=== PATIENT | female | born 1945 | race Caucasian/White ===

== ENCOUNTER 2023-03-25 12:16 | Emergency (ER) | payer MEDICARE ==
[~2023-03-25] VITALS: Ht 160 cm; Wt 70.3 kg
[~2023-03-25 12:16] MED LIST: AMBIEN10 MG PO; ATARAX25 MG PO; LISINOPRIL10 MG PO; MEDROL DOSEPAK4 MG PO; NEXIUM40 MG PO; TAGAMET300 MG PO; TENORETIC 50 501 TAB PO; TENORMIN50 MG PO; VICODIN 5/500 505 MG PO; Z-PAC; ZITHROMAX Z-PA250 MG PO
[2023-03-25 12:45] VITALS: BP 170/69
[2023-03-25] MEDS ORDERED: PREDNISONE20 M1 PO (12:53)
[2023-03-25] MEDS ORDERED: VALU-DRYL ALLER25 MG PO (12:53)
== END 2023-03-25 13:03 | disposition home or self-care (01) ==
LOC: ED 12:16
DX: T63.441A Toxic effect of venom of bees, accidental (unintentional), initial encounter (principal); L53.0 Toxic erythema; Z88.0 Allergy status to penicillin; Z88.1 Allergy status to other antibiotic agents; Z88.5 Allergy status to narcotic agent; Z79.899 Other long term (current) drug therapy; Z90.49 Acquired absence of other specified parts of digestive tract; Y92.89 Other specified places as the place of occurrence of the external cause

== ENCOUNTER 2024-06-26 07:35 | Inpatient (IN) | payer MEDICARE ==
[~2024-06-26] VITALS: Ht 160 cm; Wt 70.8 kg
[~2024-06-26 07:35] MED LIST changes: +PREDNISONE20 M1 PO; +VALU-DRYL ALLER25 MG PO
[2024-06-26 07:48] VITALS: BP 151/87
[2024-06-26 08:07] LABS: BASO % 0.1 % (0.0-1.0); EOS # 0.1 10*3/uL (0.0-0.4); EOS % 0.7 % (1.0-4.0); HEMATOCRIT 37.9 % (37.0-47.0); LYMPH # 1.8 10*3/uL (1.3-4.4); LYMPH % 12.2 % (27.0-41.0); MEAN CELL VOLUME 89.4 fl (81.0-99.0); MEAN CORPUSCULAR HGB 29.2 pg (27.0-31.0); MEAN CORPUSCULAR HGB CONC 32.7 g/dl (33.0-37.0); MEAN PLATELET VOLUME 10.5 fl (9.6-12.3); MONO # 0.6 10*3/uL (0.1-1.0); MONO % 3.8 % (3.0-9.0); NEUT # 12.4 10*3/uL (2.3-7.9); NEUT % 82.9 % (47.0-73.0); PLATELET COUNT AUTOMATED 245 10*3/uL (130-400); RED BLOOD COUNT 4.24 10*6/uL (4.10-5.10); RED CELL DISTRI WIDTH 13.9 % (0-14.5); WHITE BLOOD COUNT 14.9 10*3/uL (4.8-10.8)
[2024-06-26] MEDS ORDERED: LOSARTAN POTAS100 M1 PO (08:13)
[2024-06-26] MEDS ORDERED: OMEPRAZOLE MAGN20 MG PO (08:13)
[2024-06-26] MEDS ORDERED: AMLODIPINE BESYL5 MG PO (08:13)
[2024-06-26] MEDS ORDERED: VITAMIN D3125 MC1 PO (08:14)
[2024-06-26] MEDS ORDERED: VITAMIN B COMP1 EAC1 PO (08:14)
[2024-06-26] MEDS ORDERED: CITALOPRAM40 MG PO (08:14)
[2024-06-26] MEDS ORDERED: ALLEGRA ALLERG180 M2 PO (08:15)
[2024-06-26] MEDS ORDERED: METOPROLOL SUC100 M1 PO (08:15)
[2024-06-26] MEDS ORDERED: HYDROCHLOROTH12.5 M2 PO (08:15)
[2024-06-26] MEDS ORDERED: Ondansetron Hydrochloride 4 MG/2 ML VIAL IV ONE ×2 (08:15→09:40)
[2024-06-26] MEDS ORDERED: LEVOTHYROXINE25 MCG PO (08:15)
[2024-06-26] MEDS ORDERED: Ketorolac Tromethamine 15 MG/ML VIAL IV ONE ×2 (08:15→13:25)
[2024-06-26] MEDS ORDERED: Meclizine25 MG PO (08:16)
[2024-06-26] MEDS ORDERED: ADV 100/50 INH (08:16)
[2024-06-26] MEDS ORDERED: 24 HOUR ALLER15.8 ML INH (08:17)
[2024-06-26 08:18] LABS: ACT PARTIAL THROMBO TIME 25.6 SECONDS (20.0-32.1)
[2024-06-26 08:26] LABS: ALKALINE PHOSPHATASE 75 U/L (46-116); BUN 15 mg/dl (9-23); CHLORIDE 101 mmol/L (98-107); POTASSIUM 3.3 mmol/L (3.4-5.1); SGPT/ALT 15 U/L (5-49); TOTAL PROTEIN 6.7 gm/dL (6.0-8.0)
[2024-06-26] MEDS ORDERED: POTASSIUM CHLORIDE 20 MEQ TAB PO ONE (08:45)
[2024-06-26] MEDS ORDERED: SODIUM CHLORIDE 0.9% 1,000 ML IV ONE ×3 (08:55→09:00)
[2024-06-26] MEDS ORDERED: Doxycycline Hyclate 100 MG in SODIUM CHLORIDE 0.9% 250 ML IV ONE ×3 (09:30→22:00)
[2024-06-26] MEDS ORDERED: fentaNYL CITRATE/PF 50 MCG/ML SYRINGE IV ONE (09:35)
[2024-06-26 10:28] VITALS: BP 128/63
[2024-06-26] MEDS ORDERED: BISACODYL 10 MG SUPP R PRN (13:20)
[2024-06-26] MEDS ORDERED: Magnesium Hydroxide 30 ML UDC PO PRN (13:20)
[2024-06-26] MEDS ORDERED: BISACODYL 5 MG TAB PO PRN (13:20)
[2024-06-26] MEDS ORDERED: ACETAMINOPHEN 650 MG SUPP R PRN (13:20)
[2024-06-26] MEDS ORDERED: ACETAMINOPHEN 325 MG TAB PO PRN (13:20)
[2024-06-26 15:30] VITALS: BP 131/59
[2024-06-26 16:00] VITALS: BP 128/63
[2024-06-26] MEDS ORDERED: fentaNYL CITRATE 100 MCG/2 ML VIAL IV PRN (17:05)
[2024-06-26] MEDS ORDERED: Ketorolac Tromethamine 15 MG/ML VIAL IV PRN (17:05)
[2024-06-26 20:00] VITALS: BP 100/40
[2024-06-27] VITALS: BP 100/50
[2024-06-27 06:36] LABS: BASO % 0.2 % (0.0-1.0); EOS % 0.2 % (1.0-4.0); LYMPH # 2.6 10*3/uL (1.3-4.4); LYMPH % 19.7 % (27.0-41.0); MEAN CELL VOLUME 92.1 fl (81.0-99.0); MEAN CORPUSCULAR HGB CONC 31.5 g/dl (33.0-37.0); MEAN PLATELET VOLUME 11.6 fl (9.6-12.3); MONO # 0.7 10*3/uL (0.1-1.0); MONO % 4.9 % (3.0-9.0); NEUT # 9.8 10*3/uL (2.3-7.9); NEUT % 74.5 % (47.0-73.0); PLATELET COUNT AUTOMATED 214 10*3/uL (130-400); RED BLOOD COUNT 3.69 10*6/uL (4.10-5.10); RED CELL DISTRI WIDTH 14.3 % (0-14.5); WHITE BLOOD COUNT 13.2 10*3/uL (4.8-10.8)
[2024-06-27 07:09] LABS: BUN 10 mg/dl (9-23); CHLORIDE 105 mmol/L (98-107); POTASSIUM 3.6 mmol/L (3.4-5.1)
[2024-06-27 08:00] VITALS: BP 129/98
[2024-06-27] MEDS ORDERED: Meclizine Hydrochloride 25 MG TAB PO PRN (09:45)
[2024-06-27] MEDS ORDERED: Albuterol Sulf/Ipratropium 3 ML VIAL NEB SCH (09:45)
[2024-06-27] MEDS ORDERED: Enoxaparin Sodium 40 MG/0.4 ML SYR SC SCH (10:00)
[2024-06-27] MEDS ORDERED: Cholecalciferol 5,000 IU CAP (125 MCG) PO SCH (10:00)
[2024-06-27] MEDS ORDERED: AZITHROMYCIN 250 ML IV SCH (10:00)
[2024-06-27] MEDS ORDERED: HYDROCHLOROTHIAZIDE 12.5 MG CAP PO SCH (10:00)
[2024-06-27] MEDS ORDERED: amLODIPine besylate 5 MG TAB PO SCH (10:00)
[2024-06-27] MEDS ORDERED: Losartan Potassium 50 MG TAB PO SCH (10:00)
[2024-06-27] MEDS ORDERED: OMEPRAZOLE 20 MG CAP PO SCH (10:00)
[2024-06-27] MEDS ORDERED: Vitamin B Complex and Vitami4 1 TAB TAB PO SCH (10:00)
[2024-06-27] MEDS ORDERED: LORATADINE 10 MG TAB PO SCH (10:00)
[2024-06-27] MEDS ORDERED: Levothyroxine Sodium 25 MCG TAB PO SCH (10:00)
[2024-06-27] MEDS ORDERED: CITALOPRAM 20 MG TAB PO SCH (10:00)
[2024-06-27] MEDS ORDERED: METOPROLOL SUCCINATE XR 100 MG TAB PO SCH (10:00)
[2024-06-27] MEDS ORDERED: Doxycycline Hyclate 100 MG in SODIUM CHLORIDE 0.9% 250 ML IV SCH (10:00)
[2024-06-27 10:40] VITALS: BP 108/62
[2024-06-27 12:00] VITALS: BP 113/65
[2024-06-27 16:00] VITALS: BP 143/46
[2024-06-27 20:00] VITALS: BP 148/46
[2024-06-28] VITALS: BP 123/55
[2024-06-28 06:40] LABS: BASO % 0.4 % (0.0-1.0); EOS # 0.1 10*3/uL (0.0-0.4); EOS % 1.5 % (1.0-4.0); HEMATOCRIT 33.1 % (37.0-47.0); LYMPH # 1.8 10*3/uL (1.3-4.4); LYMPH % 26.2 % (27.0-41.0); MEAN CELL VOLUME 89.5 fl (81.0-99.0); MEAN CORPUSCULAR HGB 28.9 pg (27.0-31.0); MEAN CORPUSCULAR HGB CONC 32.3 g/dl (33.0-37.0); MEAN PLATELET VOLUME 10.9 fl (9.6-12.3); MONO # 0.6 10*3/uL (0.1-1.0); MONO % 8.1 % (3.0-9.0); NEUT # 4.2 10*3/uL (2.3-7.9); NEUT % 62.8 % (47.0-73.0); PLATELET COUNT AUTOMATED 208 10*3/uL (130-400); RED CELL DISTRI WIDTH 13.9 % (0-14.5); WHITE BLOOD COUNT 6.8 10*3/uL (4.8-10.8)
[2024-06-28 08:00] VITALS: BP 152/85
[2024-06-28 12:00] VITALS: BP 154/74
[2024-06-28] MEDS ORDERED: VIBRA-TAB100 MG PO (12:11)
== END 2024-06-28 14:06 | disposition home or self-care (01) | DRG 871 ==
LOC: ED 07:35 → EDHOLD 09:08 → 4E 14:05
PROVIDERS: Emergency Medicine; Internal Medicine; Student in an Organized Health Care Education/Training Program; ADMIT Internal Medicine; ATTEND Internal Medicine
DX: A41.9 Sepsis, unspecified organism (principal); J69.0 Pneumonitis due to inhalation of food and vomit; J96.01 Acute respiratory failure with hypoxia; J44.0 Chronic obstructive pulmonary disease with (acute) lower respiratory infection; R65.20 Severe sepsis without septic shock; E87.6 Hypokalemia; I10 Essential (primary) hypertension; K21.9 Gastro-esophageal reflux disease without esophagitis; K57.30 Diverticulosis of large intestine without perforation or abscess without bleeding; E55.9 Vitamin D deficiency, unspecified; F41.8 Other specified anxiety disorders; E89.0 Postprocedural hypothyroidism; Z85.828 Personal history of other malignant neoplasm of skin; Z90.49 Acquired absence of other specified parts of digestive tract; Z90.710 Acquired absence of both cervix and uterus; Z87.891 Personal history of nicotine dependence; Z81.1 Family history of alcohol abuse and dependence; Z80.3 Family history of malignant neoplasm of breast; Z80.0 Family history of malignant neoplasm of digestive organs; Z88.8 Allergy status to other drugs, medicaments and biological substances; Z88.0 Allergy status to penicillin; Z79.899 Other long term (current) drug therapy; Z83.3 Family history of diabetes mellitus; Z82.49 Family history of ischemic heart disease and other diseases of the circulatory system; Z88.5 Allergy status to narcotic agent